=== PATIENT | female | born 1995 | race Caucasian/White ===

== ENCOUNTER → 2020-06-09 | Outpatient (CLI) | payer BC ==
[2020-06-09 10:45] LABS: Cholesterol 144 mg/dL (< 200); HDL Cholesterol 49 mg/dL (40-59); LDL Cholesterol 87 mg/dL (< 100); Triglycerides 44 mg/dL (< 150)
== END | disposition home or self-care (01) ==
LOC: LAB 09:45
PROVIDERS: ATTEND Internal Medicine
DX: Z00.00 Encounter for general adult medical examination without abnormal findings (principal)
CPT/HCPCS: 36415; 80061; 86706; 86735; 86762; 86765; 86787

== ENCOUNTER 2023-11-07 14:15 | Emergency (ER) | payer SELFPAY ==
[~2023-11-07] VITALS: Ht 170.2 cm; Wt 63.3 kg
[2023-11-07 14:36] VITALS: BP 149/74; PULSE 96; RESP 20; TEMP 97.7; O2SAT 100
[2023-11-07] MEDS: FLUORESCEIN SOD OPTH TEST STRIP OP ONE (15:19)
[2023-11-07] MEDS ORDERED: TOB03OS OP (15:22)
== END 2023-11-07 15:35 | disposition home or self-care (01) ==
LOC: EEVIPCON 14:15 → ER 14:15
DX: S05.01XA Injury of conjunctiva and corneal abrasion without foreign body, right eye, initial encounter (principal); R51.9 Headache, unspecified; Z79.899 Other long term (current) drug therapy; X58.XXXA Exposure to other specified factors, initial encounter; Y93.89 Activity, other specified; Y92.89 Other specified places as the place of occurrence of the external cause; Y99.8 Other external cause status
CPT/HCPCS: 70450

== ENCOUNTER 2024-10-09 14:33 | Emergency (ER) | payer OTHER ==
[~2024-10-09] VITALS: Ht 170.2 cm; Wt 60.0 kg
[~2024-10-09 14:33] MED LIST: TOB03OS OP
[2024-10-09 14:57] VITALS: BP 129/83; PULSE 84; RESP 16; TEMP 99.6; O2SAT 100
[2024-10-09] MEDS: SODIUM CHLORIDE 0.9% 1,000 ML IV ONE (15:04)
[2024-10-09] MEDS: KETOROLAC TROMETH 30 MG/ML 1ML VIAL IV ONE (15:14)
[2024-10-09 15:21] LABS: Urine Bacteria None Seen /hpf (None Seen)
--- NOTE | 2024-10-09 15:23 | DVH ---
CT CT AB PEL WO CON-NO ORAL OR IV INDICATION: PELVIC PAIN WITH URINARY FREQUENCY AND URGENCY AND BLOOD IN EXAM DATE: 10/09/2024 02:53 PM COMPARISON: None RADIATION DOSE: CTDIvol: 6 mGy, DLP: 327 mGy*cm PROCEDURE: Helical CT images were obtained of the abdomen and pelvis without IV contrast Sagittal and coronal reconstructions are provided. ORAL CONTRAST: None. ADDITIONAL IMAGES / REFORMATS: None All C T scans at this medical facility are performed using dose modulation techniques as appropriate to a p erformed exam including the following: Automated exposure control was utilized; adjustment of the MA and/or KV according to patient size; and use of iterative reconstruction technique. FINDINGS: LUNG BASE: Normal. LIVER: 1.2 cm hypodense hepatic cystic lesion at the inferior tip. GALLBLADDER AND BILIARY TREE: No calcified gallstones. Normal caliber wall. No intra- or extrahepatic biliary ductal dilation. PANCREAS: Normal. SPLEEN: Normal. BOWEL: Normal. ADRENALS: Normal. KIDNEYS AND URETER: Normal. BLADDER: Normal. REPRODUCTIVE ORGANS: Normal. LYMPH NODES:No lymphadenopathy. PERITONEUM: Trace pelvic fluid, likely physiologic. VESSELS: Scattered atherosclerotic calcifications are noted. RETROPERITONEUM: Normal. ABDOMINAL WALL: Normal. BONES: Normal. IMPRESSION: Trace pelvic fluid, likely physiologic.
[2024-10-09 15:28] LABS: Basophils # (auto) 0 10 ^3/uL (0-0.2); Basophils % (auto) 0.4 % (0.0-2.0); Eosinophils # (auto) 0.1 10 ^3/uL (0-0.8); Eosinophils % (auto) 1.6 % (0.0-7.0); Hematocrit 35.9 % (36.0-46.0); Hemoglobin 12.1 g/dL (12.2-16.2); Lymphocytes # (auto) 2.6 10 ^3/uL (0.4-5.4); Lymphocytes % (auto) 36.7 % (10.0-50.0); Mean Corpuscular Hemoglobin 30.8 pg (28.0-32.0); Mean Corpuscular Hgb Conc. 33.8 g/dL (32.0-36.0); Mean Corpuscular Volume 91.2 fL (80.0-100.0); Monocytes # (auto) 0.5 10 ^3/uL (0-1.3); Monocytes % (auto) 6.5 % (0.0-12.0); Neutrophils # (auto) 3.9 10 ^3/uL (1.6-8.6); Neutrophils % (auto) 54.8 % (37.0-80.0); Platelet Count (auto) 255 10^3/uL (140-450); Red Blood Cells 3.94 10^6/uL (4.0-5.20); Red Cell Distribution Width 13.2 % (11.8-14.3); White Blood Cell 7.1 10^3/uL (4.4-10.8)
[2024-10-09 15:32] LABS: Urine Blood Negative /uL (Negative); Urine Clarity Clear (Clear); Urine Color Colorless (Yellow); Urine Protein, UAD Negative (Negative); Urine Specific Gravity 1.012 (1.001-1.035); Urine Squamous Epithelial Cell FEW /hpf (<5); Urine Urobilinogen Normal (Negative); Urine WBC < 1 /HPF (0-5)
[2024-10-09 15:37] LABS: Chloride 107 mmol/L (98-107); Potassium 3.8 mmol/L (3.5-5.1); Sodium 140 mmol/L (136-145)
[2024-10-09 15:38] LABS: Anion Gap 6 (5-15); Calcium 9.4 mg/dL (8.7-10.4); Carbon Dioxide 27 mmol/L (20-31)
[2024-10-09 15:43] LABS: BUN/Creatinine Ratio 10.3 (10.0-20.0); Glucose 97 mg/dL (74-106)
[2024-10-09 15:47] LABS: Blood Urea Nitrogen 9 mg/dL (9-23)
--- NOTE | 2024-10-09 15:53 | ED.PDOC ---
General HPI Comments A 29 YEAR OLD FEMALE PRESENTS TO THE ED WITH COMPLAINT OF URINARY FREQUENCY AND URGENCY, HEMATURIA, DYSURIA, AND BILATERAL PELVIC PAIN, TODAY. PATIENT ENDORSES ON ONGOING SYMPTOMS, INTERMITTENTLY, FOR 1 MONTH. SHE REPORTS ON INITIAL SUSPICION OF POSSIBLE UTI AND TAKING 2X ANTIBIOTIC COURSE, WITH NO RELIEF OR IMPROVEMENT. PATIENT ALSO INFORMS ON BEING EVALUATED AT URGENT [facility]ARE FACILITY AT [facility] DURING EARLIER COURSE OF SYMPTOMS AND BEING INFORMED ON HER URINE CONTAINING TRACES AMOUNTS OF BLOOD ONLY, WITH NO UTI DIAGNOSIS MADE THEN. PATIENT DENIES FEVER, CHILLS, SHORTNESS OF BREATH, CHEST PAIN, ABDOMINAL PAIN, NAUSEA, VOMITING, HEADACHE, OR OTHER COMPLAINTS. NO OTHER SYMPTOMS OR MODIFYING FACTORS AT THIS TIME. Chief Complaint: Pelvic Pain Time Seen by MD: 14:30 Primary Care Provider: NONE Reviewed notes: Nurses Notes, Medications, Allergies Allergies: Coded Allergies: NO KNOWN ALLERGIES (Unverified , 11/07/23) Home Meds Active Scripts Tobramycin Sulfate (Tobrex) [address], 2 DROP OP QID, #5 ML Prov:PATRICIA SOLIMAN 11/07/23 Information Source: Patient Mode of Arrival: Ambulatory Severity: Mild, Moderate Inability to void: None Timing: Months Duration: Intermittent, Days Prehospital treatment: Other (SEE HPI) Onset: Spontaneous Symptoms: Frequency, Urgency, Hematuria, Other (BILATERAL PELVIC PAIN ) Location: Other (BILATERAL PELVIC REGIONS) associated signs and symptoms: Frequency, Urgency, Hematuria, Other (PELVIC PAIN) Past Medical History PAST MEDICAL HISTORY: Denies Surgical History: Denies all surgeries SENIOR BUYER PLANNER History: No Pertinent SENIOR BUYER PLANNER History Family History Family History: Reviewed,noncontributory to illness Social History Smoker: Non-Smoker Alcohol: Denies ETOH Use Drugs: Denies Drug Use Lives In: Home Constitutional: denies: chills, diaphoresis, fatigue, fever, malaise, sweats, weakness, others EENTM: denies: blurred vision, double vision, ear bleeding, ear discharge, ear drainage, ear pain, ear ringing, eye pain, eye redness, hearing loss, mouth pain, mouth swelling, nasal discharge, nose bleeding, nose congestion, nose pain, photophobia, tearing, throat pain, throat swelling, voice changes, others Respiratory: denies: cough, hemoptysis, orthopnea, SOB at rest, shortness of breath, SOB with excertion, stridor, wheezing, others Cardiovascular: denies: chest pain, dizzy spells, diaphoresis, Dyspnea on exertion, edema, irregular heart beat, left arm pain, lightheadedness, palpitations, PND, syncope, others Gastrointestinal: denies: abdomen distended, abdominal pain, blood streaked bowels, constipated, diarrhea, dysphagia, difficulty swallowing, hematemesis, melena, nausea, poor appetite, poor fluid intake, rectal bleeding, rectal pain, vomiting, others Genitourinary: reports: frequency, hematuria, pain (PELVIC. ), urgency, others (BILATERAL PELVIC PAIN ); denies: abnormal vagina bleeding, burning, dyspareunia, dysuria, flank pain, incontinence, , vagina discharge Neurological: denies: dizziness, fainting, headache, left sided numbness, left sided weakness, numbness, paresthesia, pre-existing deficit, right sided numbness, right sided weakness, seizure, speech problems, tingling, tremors, weakness, others Musculoskeletal: denies: back pain, gout, joint pain, joint swelling, muscle pain, muscle stiffness, neck pain, others Integumetry: denies: bruises, change in color, change in hair/nails, dryness, laceration, lesions, lumps, rash, wounds, others Allergic/Immunocompromised: denies: Difficulty Healing, Frequent Infections, Hives, Itching, others Hematologic/Lymphatic: denies: anemia, blood clots, easy bleeding, easy bruising, swollen glands, others Endocrine: denies: excessive hunger, excessive sweating, excessive thirst, excessive urination, flushing, intolerance to cold, intolerance to heat, unexplained weight gain, unexplained weight loss, others Psychiatric: denies: anxiety, bipolar disorder, depression, hopeless, panic disorder, schizophrenia, sleepless, suicidal, others All Other Systems: Reviewed and Negative Physical Exam General Appearance: No Apparent Distress, Normal HEENT: Normal ENT Inspection, PERRL/EOMI, Pharynx Normal, TMs Normal Neck: Full Range of Motion, Non-Tender, Normal, Normal Inspection Respiratory: Chest Non-Tender, Lungs Clear, No Accessory Muscle Use, No Respiratory Distress, Normal Breath Sounds Cardiovascular: No Edema, No JVD, No Murmur, No Gallop, Normal Peripheral Pulses, Regular Rate/Rhythm Breast Exam: Deferred Gastrointestinal: No Organomegaly, Non Tender, No Pulsatile Mass, Normal Bowel Sounds, Soft Genitalia: Deferred Pelvic: Normal External Exam, Tender Adnexa (TENDERNESS PELVIC, NO GUARDING AND REBOUND TENDERNESS. ) Rectal: Deferred Extremities: No calf tenderness, Normal capillary refill, Normal inspection, Normal range of motion, Non-tender, No pedal edema Musculoskeletal : Apperance: Normal Neurologic: Alert, services tech II-XII nml as Tested, No Motor Deficits, Normal Affect, Normal Mood, No Sensory Deficits Cerebellar Function: Normal Reflexes: Normal Skin: Dry, Normal Color, Warm Peripheral Pulses: 2+ carotid (R), 2+ carotid (L) Lymphatic: No Adenopathy Was a procedure done? Was a procedure done?: No Differential Diagnosis Kidney stone (Female): Musculoskeletal pain, Ovarian torsion, Pyelonephritis, Strain, Urolithiasis, Other (NEPHROLITHIASIS) Urinary Problem (Female): Urolithiasis, UTI, Other (NEPHROLITHIASIS ) X-Ray, Labs, Meds, VS Vital Signs Date Time Temp Pulse Resp B/P (MAP) Pulse Ox O2 Delivery O2 Flow Rate FiO2 10/09/24 14:57 99.6 84 16 129/83 (98) 100 99.6 10/09/24 14:57 84 16 100 Room Air 10/09/24 14:35 99.2 84 16 129/83 (98) 100 99.2 Lab Test 10/09/24 15:09 10/09/24 00:00 Range/Units White Blood Count 7.1 4.4-10.8 10^3/uL Red Blood Count 3.94 L 4.0-5.20 10^6/uL Hemoglobin 12.1 L 12.2-16.2 g/dL Hematocrit 35.9 L 36.0-46.0 % Mean Corpuscular Volume 91.2 80.0-100.0 fL Mean Corpuscular Hemoglobin 30.8 28.0-32.0 pg Mean Corpuscular Hemoglobin Concent 33.8 32.0-36.0 g/dL Red Cell Distribution Width 13.2 11.8-14.3 % Platelet Count 255 140-450 10^3/uL Mean Platelet Volume 8.8 6.9-10.8 fL Neutrophils (%) (Auto) 54.8 37.0-80.0 % Lymphocytes (%) (Auto) 36.7 10.0-50.0 % Monocytes (%) (Auto) 6.5 0.0-12.0 % Eosinophils (%) (Auto) 1.6 0.0-7.0 % Basophils (%) (Auto) 0.4 0.0-2.0 % Neutrophils # (Auto) 3.9 1.6-8.6 10 ^3/uL Lymphocytes # (Auto) 2.6 0.4-5.4 10 ^3/uL Monocytes # (Auto) 0.5 0-1.3 10 ^3/uL Eosinophils # (Auto) 0.1 0-0.8 10 ^3/uL Basophils # (Auto) 0 0-0.2 10 ^3/uL Nucleated Red Blood Cells 0.0 % Sodium Level 140 136-145 mmol/L Potassium Level 3.8 3.5-5.1 mmol/L Chloride Level 107 98-107 mmol/L Carbon Dioxide Level 27 20-31 mmol/L Anion Gap 6 5-15 Blood Urea Nitrogen 9 9-23 mg/dL Creatinine 0.87 0.550-1.02 mg/dL Glomerular Filtration Rate Calc 92 >90 mL/min BUN/Creatinine Ratio 10.3 10.0-20.0 Serum Glucose 97 74-106 mg/dL Calcium Level 9.4 8.7-10.4 mg/dL Urine Color Colorless Yellow Urine Clarity Clear Clear Urine pH 7.0 5.0-9.0 Urine Specific [place] 1.012 1.001-1.035 Urine Protein Negative Negative Urine Ketones Negative Negative Urine Blood Negative Negative /uL Urine Nitrite Negative Negative Urine Bilirubin Negative Negative Urine Urobilinogen Normal Negative mg/dL Urine Leukocyte Esterase Negative Negative /uL Urine RBC 1 0 - 4 /hpf Urine Microscopic WBC < 1 0-5 /HPF Urine Squamous Epithelial Cells Few <5 /hpf Urine Bacteria None seen None Seen /hpf Urine Glucose Normal Normal mg/dL Current Medications Medications (Trade) Dose Ordered Sig/Annel Route Start Time Stop Time Status Last Admin Sodium Chloride 1,000 ml @ 1,000 mls/hr Q1H ONCE IV 10/09/24 14:45 10/09/24 15:44 DC 10/09/24 15:[address] [address] Ph: [phone] DIAGNOSTIC IMAGING Diagnostic Imaging Report : [id number] Signed PATIENT: MEIR GARCIA ACCT: [id number] UNIT: [id number] : 1995 LOC: ER ROOM / BED: / AGE / SEX: 29 / F ADM STATUS: REG ER SERVICE [id number] ORDERING PHYSICIAN: PATRICIA SOLIMAN PROCEDURE(s): ABPL - CT AB PEL WO CON-NO ORAL OR IV REASON: PELVIC PAIN WITH URINARY FREQUENCY AND URGENCY AND BLOOD IN ORDER NUMBER(s): [id number], ACCESSION NUMBER(s): [id number] CT CT AB PEL WO CON-NO ORAL OR IV INDICATION: PELVIC PAIN WITH URINARY FREQUENCY AND URGENCY AND BLOOD IN EXAM DATE: 10/09/2024 02:53 PM COMPARISON: None RADIATION DOSE: CTDIvol: 6 mGy, DLP: 327 mGy*cm PROCEDURE: Helical CT images were obtained of the abdomen and pelvis without IV contrast Sagittal and coronal reconstructions are provided. ORAL CONTRAST: None. ADDITIONAL IMAGES / REFORMATS: None All CT scans at this medical facility are performed using dose modulation techniques as appropriate to a performed exam including the following: Automated exposure control was utilized; adjustment of the MA and/or KV according to patient size; and use of iterative reconstruction technique. FINDINGS: LUNG BASE: Normal. LIVER: 1.2 cm hypodense hepatic cystic lesion at the inferior tip. GALLBLADDER AND BILIARY TREE: No calcified gallstones. Normal caliber wall. No intra- or extrahepatic biliary ductal dilation. PANCREAS: Normal. SPLEEN: Normal. BOWEL: Normal. ADRENALS: Normal. KIDNEYS AND URETER: Normal. BLADDER: Normal. REPRODUCTIVE ORGANS: Normal. LYMPH NODES:No lymphadenopathy. PERITONEUM: Trace pelvic fluid, likely physiologic. VESSELS: Scattered atherosclerotic calcifications are noted. RETROPERITONEUM: Normal. ABDOMINAL WALL: Normal. BONES: Normal. IMPRESSION: Trace pelvic fluid, likely physiologic. ATED BY: JONY GUARDADO MD DICTATED DATE/TIME: 10/09/24 152 SIGNED BY: JONY GUARDADO MD SIGNED DATE/TIME: 10/09/24 152 CC: X-Ray, Labs, Meds, VS Comment EXTERNAL MEDICAL RECORDS REVIEWED: [NONE] INDEPENDENT HISTORIANS: [NONE] SOCIAL DETERMINANTS OF HEALTH: [NONE] LABS ORDERED: UA, BMP, CBC REVIEWED AND INTERPRETED RESULTS: IMAGING ORDERED: CT ABDOMEN/PELVIS W/O CONTRAST, PELVIC US IMAGE INTERPRETATION: US NORMAL TREATMENTS ORDERED: HEPLOCK IV, IV FLUIDS, TORADOL 30MG IVP PROCEDURES PERFORMED: NONE CRITICAL CARE TIME: NONE I HAVE DISCUSSED THE PATIENT WITH THE ATTENDING PHYSICIAN DR. LOGAN AND HE AGREES WITH THE PATIENT'S PLAN OF CARE AND DISPOSITION. BASED ON HISTORY OF PRESENT ILLNESS, AND PHYSICAL EXAM, PATIENT WILL BE DISCHARGED HOME. SHARED DECISION MAKING: DISCUSSED WITH PATIENT THAT THEIR WORKUP WAS NORMAL. PATIENT INSTRUCTED TO FOLLOW UP WITH PRIMARY CARE PROVIDER IN 1-2 DAYS FOR RE- EVALUATION OF SYMPTOMS. PATIENT VERBALIZES UNDERSTANDING TO RETURN TO ED FOR NEW OR WORSENING SYMPTOMS OR IF FOLLOW UP WITH PCP CANNOT BE OBTAINED. PATIENT FEELS COMFORTABLE GOING HOME AT THIS TIME. ALL QUESTIONS ADDRESSED AT TIME OF DISCHARGE. Time of 1ST Reevaluation: 16:55 Reevaluation 1ST: Improved Patient Education/Counseling: Diagnosis, Treatment, Need For Follow Up Family Education/Counseling: Diagnosis, Treatment, No Family Present Medical Screening: No EMC Exist At This Time Departure 1 Departure Time of Disposition: 16:55 Impression: Primary Impression: UTI symptoms Additional Impression: Renal calculus Disposition: 01 HOME / SELF CARE / HOMELESS Condition: Stable Additional Instructions: FOLLOW-UP WITH PCP IN 1 TO 2 DAYS. TAKE MEDICATIONS PRESCRIBED. RETURN TO ED FOR ANY NEW OR WORSENING SYMPTOMS. Discharged With: Self Critical Care Note Critical Care Time?: No Stability Stability form required: No Heart Score Heart Score: Heart Score Response (Comments) Value History N/A 0 EKG N/A 0 Age N/A 0 Risk Factors N/A 0 Troponin N/A 0 Total 0 I personally scribed for PATRICIA SOLIMAN ([email or web address]) on 10/09/24 at 15:53. Mana ctronically submitted by Shukri Hernández ([email or web address]). I personally scribed for PATRICIA SOLIMAN ([email or web address]) on 10/09/24 at 16:07. El ectronically submitted by Shukri Hernández ([email or web address]). I personally scribed for PATRICIA SOLIMAN ([email or web address]) on 10/09/24 at 16:18. E lectronically submitted by Shukri Hernández ([email or web address]). PATRICIA SOLIMAN Oct 09, 2024 15:53
--- NOTE | 2024-10-09 16:26 | DVH ---
EXAM: US PELVIC HISTORY: PELVIC PAIN COMPARISON: None TECHNIQUE: Transvaginal and transabdominal pelvic ultrasound was performed. FINDINGS: The uterus measures 8.4 x 5.3 x 5.1 cm. The endometrium measures 10 mm in thickness. There is a smal l amount of fluid in the endocervical canal. The uterus is retroverted. The right ovary measures 2.6 x 1.2 x 2.6 cm is normal in appearance, and demonstrates normal color doppler blood flow. The left o vary with not visualized sonographically, possibly due to overlying bowel gas. No free fluid is iden tified in the pelvis. IMPRESSION: 1. Small amount of fluid in the endocervical canal. Otherwise normal sonographic appearance of the u terus. 2. Normal sonographic appearance of the right ovary. 3. Nonvisualization of the left ovary.
== END 2024-10-09 17:01 | disposition home or self-care (01) ==
LOC: ER 14:33 → EEVIPCON 14:33 → ER 16:59
DX: N20.0 Calculus of kidney (principal); R35.0 Frequency of micturition; R39.15 Urgency of urination; R10.2 Pelvic and perineal pain; Z79.899 Other long term (current) drug therapy
CPT/HCPCS: 36415; 74176; 76830; 76856; 80048; 81001; 85025; 96360; 99284; J7030; J1885

== ENCOUNTER 2025-05-26 08:53 | Emergency (ER) | payer BC, OTHER ==
[~2025-05-26] VITALS: Ht 170.2 cm; Wt 66.0 kg
[~2025-05-26 08:53] MED LIST changes: +AUG875T PO; +CIPR-173 PO; +METH4PAK PO; +PHEN-922 PO
--- NOTE | 2025-05-26 08:58 | ED.PDOC ---
CONCESSION SUPERVISOR HPI Comments This is a 29 year old female presenting to the ED with chief complaint of spotting during . Patient reports that she is currently 5 weeks and started to experience vaginal spotting with associated lower abdominal cramping since this morning. Patient relays that she is . Patient denies any clots, dysuria hematuria, N/V/D, or fever. Chief Complaint: Vaginal Bleed Time Seen by MD: 08:56 Reviewed Notes: Nurses Notes, Medications, Allergies Allergies: Coded Allergies: NO KNOWN ALLERGIES (Unverified , 11/07/23) Home Meds Active Scripts Phenazopyridine HCl (Phenazopyridine Hydrochlo) 200 Mg Tab, 200 MG PO TID, #6 TAB Prov:PATRICIA SOLIMAN 03/18/25 Ciprofloxacin Hcl (Cipro) 500 Mg Tab, 1 TAB PO BID, #20 TAB Prov:PATRICIA SOLIMAN 03/18/25 Amoxicillin & Pot Clavulanate (AUGMENTIN TABLET) 875 Mg Tb, 875 MG PO BID for 10 Days, #20 TAB Prov:PATRICIA SOLIMAN 01/06/25 Methylprednisolone (Medrol Dosepak) 4 Mg Tray, 4 MG PO UD, #21 TAB UAD Prov:PATRICIA SOLIMAN 01/06/25 Tobramycin Sulfate (Tobrex) [address], 2 DROP OP QID, #5 ML Prov:PATRICIA SOLIMAN 11/07/23 Information Source: Patient Mode of Arrival: Ambulatory Timing: Hours Prehospital treatment: None Severity: Moderate Bleeding Quality: Bright Red Onset Of Mass/Bleeding: Spontaneous Sexual Activity: Control: None History of: Current Associated Signs and Symptoms: Vaginal Bleeding, Abdominal Pain, Cramping Past Medical History PAST MEDICAL HISTORY: Denies Surgical History: Denies all surgeries PHOTOENGRAVING ETCHER History: No Pertinent PHOTOENGRAVING ETCHER History 2 Para 0 Family History Family History: Reviewed,noncontributory to illness Social History Smoker: Non-Smoker Alcohol: Denies ETOH Use Drugs: Denies Drug Use Lives In: Home Constitutional: denies: chills, diaphoresis, fatigue, fever, malaise, sweats, weakness, others EENTM: denies: blurred vision, double vision, ear bleeding, ear discharge, ear drainage, ear pain, ear ringing, eye pain, eye redness, hearing loss, mouth pain, mouth swelling, nasal discharge, nose bleeding, nose congestion, nose pain, photophobia, tearing, throat pain, throat swelling, voice changes, others Respiratory: denies: cough, hemoptysis, orthopnea, SOB at rest, shortness of breath, SOB with excertion, stridor, wheezing, others Cardiovascular: denies: chest pain, dizzy spells, diaphoresis, Dyspnea on exertion, edema, irregular heart beat, left arm pain, lightheadedness, palpitations, PND, syncope, others Gastrointestinal: reports: abdominal pain; denies: abdomen distended, blood streaked bowels, constipated, diarrhea, dysphagia, difficulty swallowing, hematemesis, melena, nausea, poor appetite, poor fluid intake, rectal bleeding, rectal pain, vomiting, others Genitourinary: reports: abnormal vagina bleeding, ; denies: burning, dyspareunia, dysuria, flank pain, frequency, hematuria, incontinence, pain, vagina discharge, urgency, others Neurological: denies: dizziness, fainting, headache, left sided numbness, left sided weakness, numbness, paresthesia, pre-existing deficit, right sided numbness, right sided weakness, seizure, speech problems, tingling, tremors, weakness, others Musculoskeletal: denies: back pain, gout, joint pain, joint swelling, muscle pain, muscle stiffness, neck pain, others Integumetry: denies: bruises, change in color, change in hair/nails, dryness, laceration, lesions, lumps, rash, wounds, others Allergic/Immunocompromised: denies: Difficulty Healing, Frequent Infections, Hives, Itching, others Hematologic/Lymphatic: denies: anemia, blood clots, easy bleeding, easy br uising, swollen glands, others Endocrine: denies: excessive hunger, excessive sweating, excessive thirst, excessive urination, flushing, intolerance to cold, intolerance to heat, unexplained weight gain, unexplained weight loss, others Psychiatric: denies: anxiety, bipolar disorder, depression, hopeless, panic disorder, schizophrenia, sleepless, suicidal, others All Other Systems: Reviewed and Negative Physical Exam General Appearance: No Apparent Distress, Normal HEENT: Normal ENT Inspection, Pharynx Normal, TMs Normal Neck: Full Range of Motion, Non-Tender, Normal, Normal Inspection Respiratory: Chest Non-Tender, Lungs Clear, No Accessory Muscle Use, No Respiratory Distress, Normal Breath Sounds Cardiovascular: No Edema, No JVD, No Murmur, No Gallop, Normal Peripheral Pulses, Regular Rate/Rhythm Breast Exam: Deferred Gastrointestinal: No Organomegaly, Non Tender, No Pulsatile Mass, Normal Bowel Sounds, Soft Genitalia: Deferred Pelvic: Deferred Rectal: Deferred Extremities: No calf tenderness, Normal capillary refill, Normal inspection, Normal range of motion, Non-tender, No pedal edema Musculoskeletal : Apperance: Normal Neurologic: Alert, home health provider II-XII nml as Tested, No Motor Deficits, Normal Affect, Normal Mood, No Sensory Deficits Cerebellar Function: Normal Reflexes: Normal Skin: Dry, Normal Color, Warm Lymphatic: No Adenopathy Was a procedure done? Was a procedure done?: No Differential Diagnosis (PHOTOENGRAVING ETCHER) Vaginal Bleeding: - Incomplete, - Threatened, Ectopic , Menorrhagia X-Ray, Labs, Meds, VS Vital Signs Date Time Temp Pulse Resp B/P (MAP) Pulse Ox O2 Delivery O2 Flow Rate FiO2 05/26/25 11:27 98.0 110 15 132/70 (90) 100 98.0 05/26/25 09:15 98.4 105 17 124/77 (93) 99 98.4 05/26/25 09:15 105 17 99 Room Air* 0 21 05/26/25 08:54 98.4 115 16 147/92 98 98.4 Lab Test 05/26/25 09:46 05/26/25 09:10 Range/Units Urine Color Colorless Yellow Urine Clarity Turbid H Clear Urine pH 7.0 5.0-9.0 Urine Specific [place] 1.007 1.001-1.035 Urine Protein Negative Negative Urine Ketones Negative Negative Urine Blood 3+ H Negative /uL Urine Nitrite Negative Negative Urine Bilirubin Negative Negative Urine Urobilinogen Normal Negative mg/dL Urine Leukocyte Esterase 2+ Negative /uL Urine RBC 11 0 - 4 /hpf Urine Microscopic WBC 28 H 0-5 /HPF Urine Squamous Epithelial Cells Few <5 /hpf Urine Bacteria Few H None Seen /hpf Urine Glucose Normal Normal mg/dL White Blood Count 9.7 4.4-10.8 10^3/uL Red Blood Count 4.30 4.0-5.20 10^6/uL Hemoglobin 13.1 12.2-16.2 g/dL Hematocrit 38.5 36.0-46.0 % Mean Corpuscular Volume 89.5 80.0-100.0 fL Mean Corpuscular Hemoglobin 30.6 28.0-32.0 pg Mean Corpuscular Hemoglobin Concent 34.2 32.0-36.0 g/dL Red Cell Distribution Width 13.2 11.8-14.3 % Platelet Count 335 140-450 10^3/uL Mean Platelet Volume 8.1 6.9-10.8 fL Neutrophils (%) (Auto) 66.9 37.0-80.0 % Lymphocytes (%) (Auto) 26.1 10.0-50.0 % Monocytes (%) (Auto) 5.6 0.0-12.0 % Eosinophils (%) (Auto) 1.3 0.0-7.0 % Basophils (%) (Auto) 0.1 0.0-2.0 % Neutrophils # (Auto) 6.5 1.6-8.6 10 ^3/uL Lymphocytes # (Auto) 2.5 0.4-5.4 10 ^3/uL Monocytes # (Auto) 0.5 0-1.3 10 ^3/uL Eosinophils # (Auto) 0.1 0-0.8 10 ^3/uL Basophils # (Auto) 0 0-0.2 10 ^3/uL Nucleated Red Blood Cells 0.1 % Sodium Level 140 136-145 mmol/L Potassium Level 4.2 3.5-5.1 mmol/L Chloride Level 105 98-107 mmol/L Carbon Dioxide Level 26 20-31 mmol/L Anion Gap 9 5-15 Blood Urea Nitrogen 10 9-23 mg/dL Creatinine 0.64 0.550-1.02 mg/dL Glomerular Filtration Rate Calc 122 >90 mL/min BUN/Creatinine Ratio 15.6 10.0-20.0 Serum Glucose 92 74-106 mg/dL Calcium Level 9.5 8.7-10.4 mg/dL Beta HCG, Quantitative 23.4 H 1.5-4.2 mIU/mL Current Medications Medications (Trade) Dose Ordered Sig/Annel Route Start Time Stop Time Status Last Admin Sodium Chloride 1,000 ml @ 1,000 mls/hr Q1H ONCE IV 05/26/25 09:30 05/26/25 10:29 DC 05/26/25 09:30 Time of 1ST Reevaluation: 09:56 Reevaluation 1ST: Unchanged Patient Education/Counseling: Diagnosis, Treatment Family Education/Counseling: No Family Present Departure 1 Departure Time of Disposition: 13:24 (Patient was seen by doctors wilian. Using shared decision-making patient has started that she was going to go to [place] for 2nd opinion regarding findings on ultrasound. We will discharge patient is she will go straight there.) Impression: Primary Impression: Threatened miscarriage Disposition: 01 HOME / SELF CARE / HOMELESS Condition: Fair Critical Care Note Critical Care Time?: No Stability Stability form required: No Heart Score Heart Score: Heart Score Response (Comments) Value History N/A 0 EKG N/A 0 Age N/A 0 Risk Factors N/A 0 Troponin N/A 0 Total 0 I personally scribed for LATHA HAYS MD ([email or web address]) on 05/26/25 at 08:58. Electronically submitted by Jerald Duarte ([email or web address]). LATHA HAYS MD May 26, 2025 08:58
[2025-05-26 09:15] VITALS: PULSE 105; RESP 17; O2SAT 99
[2025-05-26] MEDS: SODIUM CHLORIDE 0.9% 1,000 ML IV ONE (09:30)
[2025-05-26 09:31] LABS: Hematocrit 38.5 % (36.0-46.0); Hemoglobin 13.1 g/dL (12.2-16.2); Mean Corpuscular Hemoglobin 30.6 pg (28.0-32.0); Mean Corpuscular Volume 89.5 fL (80.0-100.0); Nucleated Red Blood Cells % 0.1 %
[2025-05-26 10:09] LABS: Chloride 105 mmol/L (98-107); Potassium 4.2 mmol/L (3.5-5.1); Sodium 140 mmol/L (136-145)
[2025-05-26 10:10] LABS: Anion Gap 9 (5-15); Calcium 9.5 mg/dL (8.7-10.4); Carbon Dioxide 26 mmol/L (20-31)
[2025-05-26 10:15] LABS: BUN/Creatinine Ratio 15.6 (10.0-20.0); Blood Urea Nitrogen 10 mg/dL (9-23); Glucose 92 mg/dL (74-106)
[2025-05-26 11:18] LABS: Urine Protein, UAD Negative (Negative)
[2025-05-26 11:27] VITALS: BP 132/70; PULSE 110; RESP 15; TEMP 98; O2SAT 100
--- NOTE | 2025-05-26 11:31 | DVH ---
OB ULTRASOUND <14 WEEKS: HISTORY: 5 weeks vag bleed TECHNIQUE: Multiple real-time grayscale sonographic images of the pelvis with duplex Doppler color flow, spectral and M-mode analysis. COMPARISON: US PELVIC on DOS: 10/09/24 FINDINGS: The uterus measures 6.6 x 6.1 x 5.7 cm. Endometrium measures 0.9 cm, within normal limits. No intrauterine gestation is seen. The cervix is unremarkable. Right ovary measures 2.4 x 1.6 x 2.5 cm with normal Doppler color flow. Left ovary measures 2.3 x 1.3 x 1.6 cm with normal Doppler color flow. Right adnexal solid-appearing mass measuring 2.8 x 2.7 x 2.4 cm that appears distinct from the ovary. Peripheral vascularity. A small amount of free fluid with debris is seen in the right adnexa. IMPRESSION: Solid-appearing right adnexal mass measuring 2.8 cm concerning for an ectopic with possible early rupture as there is a small volume of particulate fluid in the right adnexa and pelvis. Findings have been communicated to the attending ER physician by the gas regulator repairer helper.
--- NOTE | 2025-05-26 15:43 | DVHINCON2 ---
Date of service: May 26, 2025 Referring Physician ERPHYSICIAN Reason for Consultation R/O EECTOPIC PREG History of Present Illness 29 Y/O PRESENTS TO ER C/O LOWER ABD PAIN AND BLEEDING . SHE DOESNT REQUIRE ANY PAIN MEDS .BHCG IS 23 AND PELVIC US IS C/W 2.8CM RIGHT ADENXAL MASS WITH POSSIB OF ECTOPIC PREG Past Medical History NONE Past Surgical History NONE Family History NA Social History NA Allergies: Coded Allergies: NO KNOWN ALLERGIES (Unverified , 11/07/23) Home Meds Active Scripts Phenazopyridine HCl (Phenazopyridine Hydrochlo) 200 Mg Tab, 200 MG PO TID, #6 TAB Prov:PATRICIA SOLIMAN 03/18/25 Ciprofloxacin Hcl (Cipro) 500 Mg Tab, 1 TAB PO BID, #20 TAB Prov:PATRICIA SOLIMAN 03/18/25 Amoxicillin & Pot Clavulanate (AUGMENTIN TABLET) 875 Mg Tb, 875 MG PO BID for 10 Days, #20 TAB Prov:PATRICIA SOLIMAN 01/06/25 Methylprednisolone (Medrol Dosepak) 4 Mg Tray, 4 MG PO UD, #21 TAB UAD Prov:PATRICIA SOLIMAN 01/06/25 Tobramycin Sulfate (Tobrex) [address], 2 DROP OP QID, #5 ML Prov:PATRICIA SOLIMAN 11/07/23 Review of Systems Constitutional: no fever, chill, weight loss HEENT: no eye pain, no hearing loss, no oral lesion, no scleral icterus Heart: no chest pain, no chest pressure Lung: no cough, no dyspnea with exertion Abdomen: see HPI : no pain with urination, SOME SPOTTING Musculoskeletal: no joint pain, no muscle pain Neurological: no seizure, no loss of sensation, no weakness in extremities Pysch: no depression, no anxiety Derm: no rash, no jaundice Vital Signs Vital Signs Date Time Temp Pulse Resp B/P (MAP) Pulse Ox O2 Delivery O2 Flow Rate FiO2 05/26/25 11:27 98.0 110 15 132/70 (90) 100 98.0 05/26/25 09:15 Room Air* 0 21 Physical Exam ALERT AND ORIENTED IN NAD HEENT: NL NECK: NL CARDIAC:RRR PULM-CTA ABDOMEN: SOFT,NT,NO RIGIDITY OR REBOUND PELVIC-EXT GEN WNL,VAG NL NO BLEEDING NOTED,CX 1CM OPEN ,UTERUS SMALL,NT Labs/Diagnostic Data Labs Test 05/26/25 09:46 05/26/25 09:10 Range/Units Urine Color Colorless Yellow Urine Clarity Turbid H Clear Urine pH 7.0 5.0-9.0 Urine Specific Ozone 1.007 1.001-1.035 Urine Protein Negative Negative Urine Ketones Negative Negative Urine Blood 3+ H Negative /uL Urine Nitrite Negative Negative Urine Bilirubin Negative Negative Urine Urobilinogen Normal Negative mg/dL Urine Leukocyte Esterase 2+ Negative /uL Urine RBC 11 0 - 4 /hpf Urine Microscopic WBC 28 H 0-5 /HPF Urine Squamous Epithelial Cells Few <5 /hpf Urine Bacteria Few H None Seen /hpf Urine Glucose Normal Normal mg/dL White Blood Count 9.7 4.4-10.8 10^3/uL Red Blood Count 4.30 4.0-5.20 10^6/uL Hemoglobin 13.1 12.2-16.2 g/dL Hematocrit 38.5 36.0-46.0 % Mean Corpuscular Volume 89.5 80.0-100.0 fL Mean Corpuscular Hemoglobin 30.6 28.0-32.0 pg Mean Corpuscular Hemoglobin Concent 34.2 32.0-36.0 g/dL Red Cell Distribution Width 13.2 11.8-14.3 % Platelet Count 335 140-450 10^3/uL Mean Platelet Volume 8.1 6.9-10.8 fL Neutrophils (%) (Auto) 66.9 37.0-80.0 % Lymphocytes (%) (Auto) 26.1 10.0-50.0 % Monocytes (%) (Auto) 5.6 0.0-12.0 % Eosinophils (%) (Auto) 1.3 0.0-7.0 % Basophils (%) (Auto) 0.1 0.0-2.0 % Neutrophils # (Auto) 6.5 1.6-8.6 10 ^3/uL Lymphocytes # (Auto) 2.5 0.4-5.4 10 ^3/uL Monocytes # (Auto) 0.5 0-1.3 10 ^3/uL Eosinophils # (Auto) 0.1 0-0.8 10 ^3/uL Basophils # (Auto) 0 0-0.2 10 ^3/uL Nucleated Red Blood Cells 0.1 % Sodium Level 140 136-145 mmol/L Potassium Level 4.2 3.5-5.1 mmol/L Chloride Level 105 98-107 mmol/L Carbon Dioxide Level 26 20-31 mmol/L Anion Gap 9 5-15 Blood Urea Nitrogen 10 9-23 mg/dL Creatinine 0.64 0.550-1.02 mg/dL Glomerular Filtration Rate Calc 122 >90 mL/min BUN/Creatinine Ratio 15.6 10.0-20.0 Serum Glucose 92 74-106 mg/dL Calcium Level 9.5 8.7-10.4 mg/dL Beta HCG, Quantitative 23.4 H 1.5-4.2 mIU/mL Primary Diagnosis ADNEXAL MASS PER US FINDINGS CANT R/O ECTOPIC PREG Plan RECOMMEND LAPAROSOCPY ,ALL POSSIBILITIES OF PRESENTING MASS D/W PT.EXPLAINED TO PT THAT SHE NEEDS LAPAROSOPY ,PT WANTS TO BE SEEN AT [facility] FOR SECOND OPIONION .SHE WILL BE GO TO [facility] IMMED.CASE D/W DR AVILA WHO WILL FINALIZE PT"S DECISION Plan discussed with: Patient Visit Coding OBGYN Date of Service: May 26, 2025 Billing Provider: LINDA FONTENOT DO HAM SAWYER Common Visit Codes: [id number] OBS CARE (HIGH) HAM SAWYER Consultation Codes: [id number] CONSULT <110MIN LINDA FONTENOT DO May 26, 2025 15:43
== END 2025-05-26 13:29 | disposition home or self-care (01) ==
LOC: ER 08:53 → EEVIPCON 08:53 → ER 11:45
DX: O20.0 Threatened abortion (principal); Z3A.01 Less than 8 weeks gestation of pregnancy; Z79.899 Other long term (current) drug therapy
CPT/HCPCS: 36415; 76801; 80048; 81001; 84702; 85025; 96360; 99284; J7030